=== PATIENT | female | born 1945 | race Caucasian/White ===

== ENCOUNTER → 2017-07-27 | Outpatient (CLI) | payer OTHER ==
[~2017-07-27] MED LIST: ASPI81TA23 PO; LATA0.002 EACH EYE; LOPE1LIQ13 PO; METF500T PO; NEBI20 PO; PRIL20TA2 PO; TIMO0.5S30 EACH EYE
== END ==
LOC: CPRE 09:16
PROVIDERS: ATTEND Orthopaedic Surgery Sports Medicine
DX: M17.11 Unilateral primary osteoarthritis, right knee (principal)

== ENCOUNTER 2017-08-13 05:12 | Observation (INO) | payer MEDICARE, OTHER ==
[~2017-08-13] VITALS: Ht 167.6 cm; Wt 108.0 kg
[2017-08-13] MEDS ORDERED: CHLORHEXIDINE GLUCONATE 4% SOLN 120 ML BTL TOPICAL SCH (05:45)
[2017-08-13] MEDS ORDERED: VANCOMYCIN 1000 MG/NS 250 ML (for <70 kg) IV SCH ×2 (05:45)
[2017-08-13] MEDS ORDERED: DEXAMETHASONE SOD PHOS 20 MG/5 ML VIAL IV SCH (05:45)
[2017-08-13] MEDS ORDERED: ceFAZolin 2 GM PREMIX 50 ML IV SCH (05:45)
[2017-08-13] MEDS ORDERED: POVIDONE IODINE 7.5% SCRUB 118 ML BOTTLE TOPICAL SCH (05:45)
[2017-08-13] MEDS ORDERED: ACETAMINOPHEN 1000 MG/100 ML 100 ML IV ONE (05:52)
[2017-08-13] MEDS ORDERED: FAMOTIDINE 20 MG/2 ML VIAL ONE (06:28)
[2017-08-13] MEDS ORDERED: POVIDONE IODINE 5% (ANTISEPSIS KIT) 4 APPLICATIONS EACH NARE PRN (06:30)
[2017-08-13] MEDS ORDERED: METOPROLOL TARTRATE 25 MG TAB PO PRN (06:30)
[2017-08-13] MEDS ORDERED: LACTATED RINGER'S 1000 ML IV PRN (06:30)
[2017-08-13] MEDS ORDERED: SODIUM CHLORID 0.9% 500 ML IV PRN (06:30)
[2017-08-13] MEDS ORDERED: CHLORHEXIDINE GLUCONATE 2 % 1 PACK (2 CLOTHS) TOPICAL PRN (06:30)
[2017-08-13] MEDS ORDERED: INSULIN HUMAN REGULAR 1,000 UNITS/10 ML VIAL SQ PRN (06:30)
[2017-08-13] MEDS ORDERED: ASPI81CH6 CHEW (06:57)
[2017-08-13] MEDS ORDERED: HYDR-3288 PO (06:57)
[2017-08-13] MEDS ORDERED: NALOXONE HCL 0.4 MG/ML AMP IV PUSH PRN (07:00)
[2017-08-13] MEDS ORDERED: LOPERAMIDE HCL SOLN 2 MG/10 ML UDC PO PRN (07:00)
[2017-08-13] MEDS ORDERED: BISACODYL 10 MG SUPP RECTAL PRN (07:00)
[2017-08-13] MEDS ORDERED: MORPHINE SULFATE 4 MG/ML INJ IV PUSH PRN ×2 (07:00→07:45)
[2017-08-13] MEDS ORDERED: diphenhydrAMINE HCL 50 MG/ML VIAL IV PUSH PRN (07:00)
[2017-08-13] MEDS ORDERED: Post-op Orders (for Pharmacy) XX ONE (07:00)
[2017-08-13] MEDS ORDERED: ONDANSETRON HCL 4 MG/2 ML VIAL IVP PRN (07:00)
[2017-08-13] MEDS ORDERED: ZOLPIDEM TARTRATE 5 MG TAB PO PRN (07:00)
[2017-08-13] MEDS ORDERED: PANTOPRAZOLE SOD 20 MG DELAYED RELEASE TAB PO PRN (07:00)
[2017-08-13] MEDS ORDERED: APREPITANT 40 MG CAP ONE (07:04)
[2017-08-13] MEDS ORDERED: GENTAMICIN SULFATE 80 MG/2 ML VIAL ONE (07:13)
[2017-08-13] MEDS ORDERED: BUPIVACAINE LIPOSOME PF 1.3% 20 ML VIAL ONE (07:25)
[2017-08-13] MEDS ORDERED: SODIUM CHLORIDE 0.9% INJ 20 ML ONE (07:28)
[2017-08-13] MEDS ORDERED: VANCOMYCIN HCL 1000 MG VIAL ONE (07:37)
[2017-08-13] MEDS ORDERED: TRANEXAMIC PERI-ARTICULAR 3,000 MG/NS 100 ML P-ARTICULR SCH ×2 (08:30)
[2017-08-13] MEDS ORDERED: SODIUM CHLORIDE 0.9% IV SCH (08:30)
[2017-08-13] MEDS ORDERED: TRANEXAMIC ACID IV SCH (08:30)
[2017-08-13] MEDS: metFORMIN HCL 500 MG TAB PO SCH ×2 (09:00→18:25)
[2017-08-13] MEDS: NEBIVOLOL 10 MG TAB PO SCH (09:00)
[2017-08-13] MEDS: ROPIVACAINE PERI-ARTICULAR INJECTION. P-ARTICULR SCH ×10 (10:09→10:11)
[2017-08-13] MEDS ORDERED: MIDAZOLAM HCL 2 MG/2 ML VIAL ONE (10:55)
[2017-08-13] MEDS: SODIUM CHLOR 0.9% 1000 ML INJ 1,000 ML IV SCH (10:55)
[2017-08-13] MEDS ORDERED: DO NOT ADM ANY ANTICOAGULANT DRUGS PRN (11:15)
--- NOTE | 2017-08-13 11:34 | RADRPT ---
EXAM DATE/TIME: 08/13/2017 11:02 [place] COMPARISON: No previous studies available for comparison. INDICATIONS : Post op right knee arthroplasty. MEDICAL HISTORY : None. SURGICAL HISTORY : None. ENCOUNTER: Initial ACUITY: 1 day PAIN SCORE: Non-responsive. LOCATION: Right knee FINDINGS: 2 views of the knee show a total knee prosthesis in good position. No fracture or dislocation is obse rved. Soft tissue swelling is noted. Air and fluid noted within the joint. Old trauma involving the d istal femur. CONCLUSION: Total knee arthroplasty in good position. Yousif Ornelas Jr., MD on August 13, 2017 at 11:28 Board Certified Radiologist. This report was verified electronically.
[2017-08-13] MEDS ORDERED: NEOSTIGMINE 5 MG/5 ML SYRINGE IV PUSH ONE (12:00)
[2017-08-13] MEDS ORDERED: DEXAMETHASONE SOD PHOS 4 MG/ML VIAL IV ONE (12:00)
[2017-08-13] MEDS ORDERED: LIDOCAINE HCL 1% PF 5 ML SYRINGE OTHER ONE (12:00)
[2017-08-13] MEDS ORDERED: PROPOFOL 200 MG/20 ML AMP IV ONE (12:00)
[2017-08-13] MEDS ORDERED: ONDANSETRON HCL 4 MG/2 ML VIAL IV ONE (12:00)
[2017-08-13] MEDS ORDERED: LACTATED RINGER'S 1000 ML INJ 1,000 ML IV ONE (12:00)
[2017-08-13] MEDS ORDERED: ROCURONIUM INJ 50 MG/5 ML SYRINGE IV PUSH ONE (12:00)
[2017-08-13] MEDS ORDERED: GLYCOPYRROLATE 1 MG/5 ML SYRINGE IV PUSH ONE (12:00)
[2017-08-13] MEDS ORDERED: *morphine SULFATE 10 MG/ML PERIprocedure ONLY ONE (13:01)
[2017-08-13] MEDS: ceFAZolin 2 GM PREMIX 50 ML IV SCH ×2 (14:00→18:25)
--- NOTE | 2017-08-13 14:54 | HHI.DCPOC ---
Discharge Care Plan Diagnosis: (1) Primary localized osteoarthrosis, lower leg Your Health Problems Are: Difficulty with ADL Goals to Promote Your Health * To prevent worsening of your condition and complications * To maintain your health at the optimal level Directions to Meet Your Goals Take your medications as prescribed Follow your dietary instruction Follow activity as directed Keep your appointments as scheduled Take your immunizations and boosters as scheduled If your symptoms worsen call your PCP, if no PCP go to Urgent Care Center or Emergency Room Smoking is Dangerous to Your Health. Avoid second hand smoke Call the 24-hour hour crisis hotline for domestic abuse at Oscar Jade Aug 13, 2017 14:53
--- NOTE | 2017-08-13 14:54 | HHI.FF ---
Face to Face Verification Diagnosis: (1) Primary localized osteoarthrosis, lower leg Physical Therapy Gait training, Safety evaluation, Transfer training, bed to chair Knee: Total knee, Protocol: Right, Full weight bearing Right LE Weight Bearing: WB as tolerated Nursing RN: 3 days/week x 2 weeks Nursing: Telly teaching, Dressing changes Dressing Changes: Daily dressing change I have seen patient Amelia Barksdale Early on 08/13/17. My clinical findings support the need for the requested home health care services because: Limited ability to care for self High risk of falls I certify that my clinical findings support that this patient is homebound because: Post-op weakness Unsteady gait/balance Oscar Jade Aug 13, 2017 14:54
[2017-08-13 16:00] VITALS: BP 133/74; PULSE 71; RESP 15; TEMP 97.1; O2SAT 93
--- NOTE | 2017-08-13 16:04 | PD.CONS ---
HPI Service [facility] Hospitalists Consult Requested By Dr. Burnett Reason for Consult Medical management Primary Care Physician Tate Burnett M.D. Diagnoses: History of Present Illness 72 year old female admitted after having a right total knee replacement with Dr. Forrest. Hospitalist service consulted for medical management of chronic conditions. Patient has no acute complaints and states she is feeling well post-op, just tired. She denies chest pain, shortness of breath, abdominal pain, nausea, vomiting, or headache. She states she had a meniscal repair of her right knee years ago and since then her knee has continued to give her problems and cause her pain. Review of Systems Constitutional: DENIES: Fever, Chills Eyes: DENIES: Diplopia Respiratory: DENIES: Cough, Shortness of breath Cardiovascular: DENIES: Chest pain, Palpitations Gastrointestinal: DENIES: Abdominal pain, Nausea, Vomiting Musculoskeletal: DENIES: Back pain, Neck pain Neurologic: DENIES: Headache Psychiatric: DENIES: Confusion Past Family Social History Allergies: Coded Allergies: No Known Allergies (Unverified , 08/13/17) Past Medical History DM HTN HLD (cannot tolerate statins) OA GERD Past Surgical History Cholecystectomy x 2 Hysterectomy Elbow reconstruction Right meniscal tear repair Right TKR Reported Medications Aspirin Low Dose (Aspirin) 81 Mg Chew 81 Mg CHEW DAILY 30 Days [place] (Hydrocodone-Acetaminophen) 7.5-325 mg Tab 1-2 Tab PO Q6H PRN Prilosec (Omeprazole Magnesium) 20 Mg Tab 1 Tab PO DAILY PRN Latanoprost Opth Drops (Latanoprost) 0.005% Drops 1 Drop EACH EYE HS Timolol Opth Drops 0.5 % Soln 1 Drop EACH EYE BID Imodium A-D (Loperamide HCl) 1 Mg/7.5 Ml Liquid 1 Mg PO DAILY PRN Metformin (Metformin HCl) 500 Mg Tab 500 Mg PO BIDPC Aspirin EC (Aspirin) 81 Mg Tabdr 81 Mg PO DAILY Bystolic (Nebivolol) 20 Mg Tab 20 Mg PO DAILY Family History Father from COPD Mother decreased from lung cancer Social History Lives alone Works as a residential interior designer Never smoked Rare EtOH use Physical Exam Vital Signs Vital Signs Date Time Temp Pulse Resp B/P (MAP) Pulse Ox O2 Delivery O2 Flow Rate FiO2 08/13/17 15:27 Nasal Cannula 2.00 2/19/18 11:30 54 18 132/62 (85) 92 Nasal Cannula 2 08/13/17 11:15 65 21 128/60 (82) 95 Nasal Cannula 2 08/13/17 11:00 60 17 149/64 (92) 95 Nasal Cannula 2 08/13/17 10:47 97.4 66 12 139/62 (87) 94 Nasal Cannula 3 08/13/17 08:13 66 18 124/66 (85) 97 08/13/17 06:38 96.0 78 20 147/97 (114) 95 Physical Exam GENERAL: Well-nourished, well-developed female laying in bed in no apparent distress. SKIN: No rashes, ecchymoses or lesions. Cool and dry. HEAD: Atraumatic. Normocephalic. No temporal or scalp tenderness. Pupils equal and round. Extraocular motions intact. No scleral icterus. No injection or drainage. Nose without bleeding, purulent drainage or septal hematoma. Throat without erythema, tonsillar hypertrophy or exudate. Uvula midline. Airway patent. NECK: Trachea midline. No JVD or lymphadenopathy. Supple, nontender, no meningeal signs. CARDIOVASCULAR: Regular rate and rhythm without murmurs, gallops, or rubs. RESPIRATORY: Clear to auscultation. Breath sounds equal bilaterally. No wheezes , rales, or rhonchi. GASTROINTESTINAL: Abdomen soft, non-tender, nondistended. No hepato-splenomegaly , or palpable masses. No guarding. MUSCULOSKELETAL: LLE with SCD in place. RLE wrapped. NEUROLOGICAL: Awake and alert. Normal speech. Assessment and Plan Assessment and Plan 72 year old female s/p R TKR. Consulted for medical management. 1. S/P R TKR - Post-op care and pain control per ortho - PT 2. DM - Resume home metformin - SSI per protocol 3. HTN - Continue home Bystolic 4. GERD - Continue home PPI 5. DVT prophylaxis - Lovenox per ortho 6. FEN Diabetic diet Code Status FULL Brissa Cespedes MD Aug 13, 2017 16:04
[2017-08-13] MEDS ORDERED: MENTHOL LOZENGE BUCCAL PRN (16:30)
[2017-08-13] MEDS: ACETAMINOPHEN/HYDROcodone 325 MG/7.5 MG TAB PO PRN (18:26)
[2017-08-13] MEDS: LATANOPROST 0.005% OPHT SOLN 2.5 ML BTL EACH EYE SCH (20:09)
[2017-08-13 21:25] VITALS: BP 111/63; PULSE 74; RESP 18; TEMP 97.1; O2SAT 95
[2017-08-14] VITALS (7 sets, daily range): BP systolic 103–125; BP diastolic 53–71; PULSE 60–78; RESP 17–18; TEMP 96.5–98.7; O2SAT 92–95
[2017-08-14] MEDS: ceFAZolin 2 GM PREMIX 50 ML IV SCH (00:48)
[2017-08-14] MEDS: SODIUM CHLOR 0.9% 1000 ML INJ 1,000 ML IV SCH ×3 (00:50→21:07)
[2017-08-14 05:28] LABS: HEMATOCRIT 34.9 % (35.0-46.0); HEMOGLOBIN 11.7 GM/DL (11.6-15.3); MEAN CORPUSCULAR HEMOGLOBIN 28.8 PG (27.0-34.0); MEAN CORPUSCULAR HGB CONC 33.4 % (32.0-36.0); MEAN PLATELET VOLUME 9.3 FL (7.0-11.0); PLATELET COUNT 235 TH/MM3 (150-450); RED BLOOD COUNT 4.06 MIL/MM3 (4.00-5.30); RED CELL DISTRIBUTION WIDTH 13.6 % (11.6-17.2); WHITE BLOOD COUNT 10.5 TH/MM3 (4.0-11.0)
[2017-08-14 05:53] LABS: BICARBONATE 25.3 MEQ/L (21.0-32.0); CALCIUM 8.5 MG/DL (8.5-10.1); CREATININE 0.79 MG/DL (0.50-1.00)
[2017-08-14] MEDS: ACETAMINOPHEN/HYDROcodone 325 MG/7.5 MG TAB PO PRN ×4 (06:18→23:04)
--- NOTE | 2017-08-14 08:36 | PD.ORT.PN ---
Subjective Post Op Day #: 1 Subjective Remarks pain controlled. Objective Vitals Vital Signs Date Time Temp Pulse Resp B/P (MAP) Pulse Ox O2 Delivery O2 Flow Rate FiO2 08/14/17 08:00 97.5 60 17 125/59 (81) 94 08/14/17 05:16 Room Air 08/14/17 03:40 97.0 70 18 115/53 (73) 95 08/14/17 00:35 98.0 68 18 121/60 (80) 92 08/13/17 21:25 97.1 74 18 111/63 (79) 95 08/13/17 19:30 18 08/13/17 16:00 97.1 71 15 133/74 (93) 93 08/13/17 15:27 Nasal Cannula 2.00 08/13/17 15:00 97.5 77 22 139/65 (89) 100 Nasal Cannula 2 08/13/17 14:00 61 18 139/60 (86) 100 Nasal Cannula 2 08/13/17 13:00 62 20 117/79 (92) 99 Nasal Cannula 2 08/13/17 12:30 60 18 137/60 (85) 98 Nasal Cannula 2 08/13/17 12:00 57 19 126/57 (80) 97 Nasal Cannula 2 08/13/17 11:30 54 18 132/62 (85) 92 Nasal Cannula 2 08/13/17 11:15 65 21 128/60 (82) 95 Nasal Cannula 2 08/13/17 11:00 60 17 149/64 (92) 95 Nasal Cannula 2 08/13/17 10:47 97.4 66 12 139/62 (87) 94 Nasal Cannula 3 I/O 08/13/17 08/13/17 08/13/17 08/14/17 08/14/17 08/14/17 07:00 15:00 23:00 07:00 15:00 23:00 Intake Total 1300 ml 50 ml 1240 ml Output Total 280 ml 1000 ml Balance 1020 ml 50 ml 240 ml Intake Oral 1240 ml IV Total 1300 ml 50 ml Output Urine Total 230 ml 1000 ml Estimated Blood Loss 50 ml # Bowel Movements 0 Result Diagram: 08/14/175 08/14/17444 Objective Remarks in bed, nad dressing c/d/i neg homans nvi Assessment & Plan Ortho Post Op Day #: 1 Problem List: Assessment and Plan s/p R TKA wbat daily dressing changes carmen, d/c on asa81 d/c planning to snf rx in chart f/up dr. lcay 2 weeks Oscar Jade Aug 14, 2017 08:36
[2017-08-14] MEDS ORDERED: WALKER WHEELS/F1 MIS (08:38)
[2017-08-14] MEDS ORDERED: COMMODE 3-IN-11 MIS (08:38)
[2017-08-14] MEDS ORDERED: CPMMACHINE (08:38)
[2017-08-14] MEDS: metFORMIN HCL 500 MG TAB PO SCH ×2 (10:01→17:41)
[2017-08-14] MEDS: ENOXAPARIN SODIUM 40 MG/0.4 ML SYRINGE SQ SCH (10:08)
[2017-08-14] MEDS: NEBIVOLOL 10 MG TAB PO SCH (10:09)
--- NOTE | 2017-08-14 10:22 | MP ---
cc: DAKOTA MALONE DATE OF SURGERY 08/13/2017 PREOPERATIVE DIAGNOSIS Right knee osteoarthritis. POSTOPERATIVE DIAGNOSIS Right knee osteoarthritis. PROCEDURE Right total knee arthroplasty. SURGEON Dr. Dakota Malone. BIOTECHNOLOGIST Christiano Jade PA-C. ANESTHESIA General with an adductor canal femoral nerve block. ESTIMATED BLOOD LOSS 50 cc. TOURNIQUET TIME 25 minutes at 250 mmHg. COMPLICATIONS None. IMPLANTS USED DePuy Attune, size 7 posterior stabilized femoral component, size 6 rotating platform tibia baseplate, size 5 mm polyethylene tibial insert, size 35 patella. JUSTIFICATION This patient is a 72-year-old female with a history of severe end-stage osteoarthritis involving the right knee. She has severe disabling pain with standing, walking ambulation and weightbearing activities and even severe pain at rest. She has failed greater than three months of nonoperative conservative treatment to include medication, therapy, injections, ambulatory assisted aids, home exercise program, activity modification and weight loss attempts. X-rays of the right knee revealed severe end-stage osteoarthritis with [id number] joint space narrowing, subchondral sclerosis, subchondral cysts, osteophyte formation and subluxation with varus deformity. The patient was counseled as to the risks, benefits and alternatives to a total knee arthroplasty. The risks were discussed which include but are not limited to anesthesia, bleeding, infection, damage to nerves and blood vessels, pain, stiffness, failure of components, blood clots, pulmonary embolism and even . The patient's pain was severe. She favored the benefits over the risks. She did wish to proceed with surgery. PROCEDURE IN DETAIL A written consent was obtained. The patient was identified by name, taken to the operating room and placed supine on the operating table. General anesthesia was administered as well as two grams of IV Ancef and one gram of IV vancomycin. A well-padded tourniquet was placed on the right thigh. The right lower extremity was prepped and draped using isopropyl alcohol, Hibiclens solution and ChloraPrep solution. After a timeout was formed an Esmarch bandage was used to exsanguinate the right lower extremity and tourniquet inflated to 250 mmHg. A longitudinal incision was made over the anterior aspect of the right knee. A medial parapatellar arthrotomy was performed. The patella was everted. A patellar resection guide was used to resect 9 mm of patella. A size 35 mm guide was placed. Three drill holes were placed and the 35 mm trial fit well. Attention was turned to the femur where an intramedullary guide jen was placed. A distal femoral guide was set to remove 10 mm of distal femur 5 degrees off the anatomic valgus axis alignment. An oscillating saw was used to perform the distal femoral cut. Attention was turned to the tibia where an extramedullary tibial guide was set to remove 5 mm off the lowest portion of the medial tibial plateau. The tibial guide was pinned in place and the tibial cut was performed. A 5 mm spacer block showed full extension. Attention was turned back to the femur where the AP sizing block measured size 7. An anterior reference 3 degree external rotation guide was used to pin a size [address] The anterior, posterior and chamfer cuts were performed. A size 7 PCL box guide was pinned in place and the PCL was box cut with an oscillating saw. The medial and lateral meniscus remnants were removed as well as bone and soft tissue debris from the posterior portion of the knee. A size 6 tibial baseplate was pinned in place and the tibia was drilled and punched. Trial components were evaluated and final components cemented in place. With the current components the leg could achieve full extension to 0 degrees and flexion to 140. There was no evidence of tibial lift-off. Varus-valgus balance appeared appropriate and symmetric. The patella did have central patellar tracking after a partial lateral release was performed. With the tourniquet deflated Bovie cautery was used for hemostasis. The knee was thoroughly irrigated with sterile saline pulse lavage antibiotic-impregnated solution. The arthrotomy incision was closed with #1 Vicryl suture, the subcutaneous layer with 2-0 Vicryl suture. Skin was closed with Dermabond. Sterile dressing was applied. The patient tolerated the procedure with no intraoperative complications noted. Christiano Jade, physician facilities maintenance assistant certified, was present during the entire procedure to include patient positioning and the procedure itself. The medical necessity of the physician facilities maintenance assistant was indicated in this case due to the complexity of the procedure. He assisted with manipulation of the leg and also retraction of muscle, tendon, bone and neurovascular structures. He assisted with preparation of bone and also implantation of the prosthetic replacement. MD LAURIE Reed/JUNIOR /10:10 AM /9:57 AM
--- NOTE | 2017-08-14 18:31 | HHI.PR ---
Subjective Remarks seen this am no cp or sobn no n/v. no bm yet. Patient says she took Imodium prior to admission because she does not want have a bowel movement in the hospital. Objective Vital Signs Date Time Temp Pulse Resp B/P (MAP) Pulse Ox O2 Delivery O2 Flow Rate FiO2 08/14/17 16:00 96.9 75 17 103/71 (82) 95 08/14/17 11:57 96.5 62 17 111/56 (74) 93 08/14/17 08:00 97.5 60 17 125/59 (81) 94 08/14/17 05:16 Room Air 08/14/17 03:40 97.0 70 18 115/53 (73) 95 08/14/17 00:35 98.0 68 18 121/60 (80) 92 08/13/17 21:25 97.1 74 18 111/63 (79) 95 08/13/17 19:30 18 I/O 08/13/17 08/13/17 08/13/17 08/14/17 08/14/17 08/14/17 07:00 15:00 23:00 07:00 15:00 23:00 Intake Total 1300 ml 50 ml 1240 ml 480 ml Output Total 280 ml 1000 ml Balance 1020 ml 50 ml 240 ml 480 ml Intake Oral 1240 ml 480 ml IV Total 1300 ml 50 ml Output Urine Total 230 ml 1000 ml Estimated Blood Loss 50 ml # Voids 1 1 # Bowel Movements 0 0 Result Diagram: 08/14/175 08/14/17 0445 Objective Remarks GENERAL: NAD. AAOX3 SKIN: Warm and dry. HEAD: Normocephalic. EYES: No scleral icterus. No injection or drainage. NECK: Supple, trachea midline. No JVD. CARDIOVASCULAR: Regular rate and rhythm without murmurs, gallops, or rubs. RESPIRATORY: Breath sounds equal bilaterally. No accessory muscle use. GASTROINTESTINAL: Abdomen soft, non-tender, nondistended. MUSCULOSKELETAL: No cyanosis, or edema. BACK: Nontender without obvious deformity. No CVA tenderness. A/P Assessment and Plan 72 year old female s/p R TKR. Consulted for medical management. //S/P R TKR - Post-op care and pain control per ortho - PT //DM - cont home metformin - SSI per protocol //. HTN - Continue home Bystolic // GERD - Continue home PPI // DVT prophylaxis - Lovenox per ortho // FEN Diabetic diet Discharge Planning as per ortho. Oscar Tijerina MD Aug 14, 2017 18:31
[2017-08-14] MEDS ORDERED: DOCUSATE SODIUM 50 MG/SENNA 8.6 MG TAB PO ONE (20:00)
[2017-08-14] MEDS: DOCUSATE SODIUM 100 MG CAP PO SCH (21:06)
[2017-08-14] MEDS: MULTIVITAMINS/MINERALS THERAPEUTIC TAB PO SCH (21:06)
[2017-08-14] MEDS: LATANOPROST 0.005% OPHT SOLN 2.5 ML BTL EACH EYE SCH (21:07)
--- NOTE | 2017-08-15 07:48 | PD.ORT.PN ---
Subjective Post Op Day #: 2 Subjective Remarks pain controlled. doing well. Objective Vitals Vital Signs Date Time Temp Pulse Resp B/P (MAP) Pulse Ox O2 Delivery O2 Flow Rate FiO2 08/14/17 23:25 98.7 64 18 123/66 (85) 93 08/14/17 20:40 97.3 78 18 107/68 (81) 94 08/14/17 16:00 96.9 75 17 103/71 (82) 95 08/14/17 11:57 96.5 62 17 111/56 (74) 93 08/14/17 08:00 97.5 60 17 125/59 (81) 94 I/O 08/14/17 08/14/17 08/14/17 08/15/17 08/15/17 08/15/17 07:00 15:00 23:00 07:00 15:00 23:00 Intake Total 1240 ml 480 ml 720 ml Output Total 1000 ml Balance 240 ml 480 ml 720 ml Intake Oral 1240 ml 480 ml 720 ml Output Urine Total 1000 ml # Voids 1 1 2 # Bowel Movements 0 0 0 Result Diagram: 08/14/17 0445 08/14/17 0445 Objective Remarks in bed, nad dressing c/d/i neg homans nvi Assessment & Plan Ortho Post Op Day #: 2 Problem List: Assessment and Plan s/p R TKA wbat daily dressing changes lovenox, d/c on asa81 PT d/c planning to snf - pending authorization, likely Thurs. rx in chart f/up dr. lacy 2 weeks Oscar Jade Aug 15, 2017 07:48
[2017-08-15 08:00] VITALS: BP 129/48; PULSE 56; RESP 18; TEMP 96.5; O2SAT 93
[2017-08-15] MEDS: DOCUSATE SODIUM 100 MG CAP PO SCH (08:20)
[2017-08-15] MEDS: MULTIVITAMINS/MINERALS THERAPEUTIC TAB PO SCH (08:20)
[2017-08-15] MEDS: NEBIVOLOL 10 MG TAB PO SCH (08:20)
[2017-08-15] MEDS: metFORMIN HCL 500 MG TAB PO SCH (08:20)
[2017-08-15] MEDS: ACETAMINOPHEN/HYDROcodone 325 MG/7.5 MG TAB PO PRN ×2 (08:21→16:06)
[2017-08-15] MEDS: SODIUM CHLOR 0.9% 1000 ML INJ 1,000 ML IV SCH (08:22)
[2017-08-15 08:32] LABS: HEMATOCRIT 32.3 % (35.0-46.0); HEMOGLOBIN 10.8 GM/DL (11.6-15.3); MEAN CELL VOLUME 86.3 FL (80.0-100.0); MEAN CORPUSCULAR HGB CONC 33.6 % (32.0-36.0); MEAN PLATELET VOLUME 9.5 FL (7.0-11.0); PLATELET COUNT 228 TH/MM3 (150-450); RED BLOOD COUNT 3.74 MIL/MM3 (4.00-5.30); RED CELL DISTRIBUTION WIDTH 13.7 % (11.6-17.2); WHITE BLOOD COUNT 9.5 TH/MM3 (4.0-11.0)
[2017-08-15 08:55] LABS: BICARBONATE 29.6 MEQ/L (21.0-32.0); CALCIUM 8.8 MG/DL (8.5-10.1); CREATININE 0.8 MG/DL (0.50-1.00)
[2017-08-15] MEDS ORDERED: DOCUSATE SODIUM 50 MG/SENNA 8.6 MG TAB PO ONE (09:15)
[2017-08-15] MEDS ORDERED: MAGNESIUM HYDROXIDE SUSP 30 ML CUP PO ONE (09:15)
[2017-08-15] MEDS: ENOXAPARIN SODIUM 40 MG/0.4 ML SYRINGE SQ SCH (09:41)
[2017-08-15 11:56] VITALS: BP 121/64; PULSE 54; RESP 18; TEMP 97.6; O2SAT 97
--- NOTE | 2017-08-15 12:44 | HHI.PR ---
Subjective Remarks Patient seen today around 9 AM. She says she is feeling all right. Reports pain is controlled. Denies any chest pain or shortness of breath. Still no bm , however denies any abdominal pain. Objective Vital Signs Date Time Temp Pulse Resp B/P (MAP) Pulse Ox O2 Delivery O2 Flow Rate FiO2 08/15/17 11:56 97.6 54 18 121/64 (83) 97 08/15/17 09:00 18 08/15/17 08:57 Room Air 08/15/17 08:00 96.5 56 18 129/48 (75) 93 08/14/17 23:25 98.7 64 18 123/66 (85) 93 08/14/17 20:40 97.3 78 18 107/68 (81) 94 08/14/17 16:00 96.9 75 17 103/71 (82) 95 I/O 08/14/17 08/14/17 08/14/17 08/15/17 08/15/17 08/15/17 07:00 15:00 23:00 07:00 15:00 23:00 Intake Total 1240 ml 480 ml 720 ml Output Total 1000 ml Balance 240 ml 480 ml 720 ml Intake Oral 1240 ml 480 ml 720 ml Output Urine Total 1000 ml # Voids 1 1 2 # Bowel Movements 0 0 0 Result Diagram: 08/15/1770108/15/17 07 Objective Remarks GENERAL: NAD. AAOX3 no change on exam. SKIN: Warm and dry. HEAD: Normocephalic. EYES: No scleral icterus. No injection or drainage. NECK: Supple, trachea midline. No JVD. CARDIOVASCULAR: Regular rate and rhythm without murmurs, gallops, or rubs. RESPIRATORY: Breath sounds equal bilaterally. No accessory muscle use. GASTROINTESTINAL: Abdomen soft, non-tender, nondistended. MUSCULOSKELETAL: No cyanosis, or edema. BACK: Nontender without obvious deformity. No CVA tenderness. A/P Assessment and Plan 72 year old female s/p R TKR. Consulted for medical management. //S/P R TKR - Post-op care and pain control per ortho - PT //DM - cont home metformin - SSI per protocol //. HTN - Continue home Bystolic // GERD - Continue home PPI // DVT prophylaxis - Lovenox per ortho //Constipation. Patient took Imodium prior to admission. Also exacerbated by narcotics. Laxatives order this morning. Enema this afternoon. // FEN Diabetic diet Discharge Planning as per ortho. Oscar Tijerina MD Aug 15, 2017 12:44
[2017-08-15] MEDS ORDERED: SOD PHOSPHATE/SOD BIPHOSPHATE (ADULT) ENEMA 133ML RECTAL ONE (12:45)
--- NOTE | 2017-08-22 09:39 | MD ---
cc: Oscar Forrest MD DATE OF DISCHARGE: 08/15/2017 ADMITTING DIAGNOSIS: Severe degenerative osteoarthritis right knee. DISCHARGE DIAGNOSIS: Severe degenerative osteoarthritis right knee. HISTORY OF PRESENT ILLNESS: Ms. Ferrell is a 72-year-old female who has been a patient of Dr. Sb Forrest at the orthopedic clinic at [place]. Currently she is being treated for severe and progressive right knee pain. The patient states the pain is a severe aching sensation inhibiting her activities of daily living. She notes that she has no alleviating factors, although in the past she has tried medications, bracing, physical therapy, home exercise program and corticosteroid injections without relief of symptoms. She does have x-ray evidence of severe degenerative osteoarthritis of the right knee. While in the office the patient was counseled on her diagnosis and treatment options, risks, benefits, indications all were discussed. The patient did elect to proceed with surgical intervention to include a right total knee arthroplasty. Date of surgery 08/13/2017, right total knee arthroplasty. POSTOPERATIVE: After surgery, patient admitted to [facility] where she received appropriate medical management with pain control, DVT prophylaxis as well as physical therapy. DISCHARGE: The patient is being discharged from the hospital. The patient is cleared to go to a long-term facility. She is in stable condition. She may weight bear as tolerated. She has been instructed in appropriate wound care an management. She has been provided prescriptions for pain control as well as DVT prophylaxis medication. She has also been provided a followup appointment approximately 2 weeks from her date of surgery. The patient asked appropriate questions which have been answered. The patient has been discharged. Dictated by Oscar Jade PA-C Oscar Forrest MD JWM/rt , 08:40 AM , 11:39 PM
== END 2017-08-15 16:58 ==
LOC: HSDC 05:12 → INTOOBSV 07:13 → HSDI 07:13 → EDSTATUS 08:30 → N06A 15:29
PROVIDERS: ADMIT Orthopaedic Surgery Sports Medicine; ATTEND Orthopaedic Surgery Sports Medicine
DX: M17.11 Unilateral primary osteoarthritis, right knee (principal); K59.00 Constipation, unspecified; I10 Essential (primary) hypertension; E11.9 Type 2 diabetes mellitus without complications; E78.5 Hyperlipidemia, unspecified; K21.9 Gastro-esophageal reflux disease without esophagitis; Z79.84 Long term (current) use of oral hypoglycemic drugs; Z79.82 Long term (current) use of aspirin
CPT/HCPCS: 01400; 27447; 73560; 80048; 82948; 85027; 86850; 86900; 86901; 94150; 96365; 96372; 97110; 97116; 97150; 97162; 97167; 97535; C1776; C9290; G0378; J0131; J0690; J0735; J1100; J1580; J1650; J1885; J2250; J2270; J2405; J2710; J2795; J3010; J3370; J7030; J7050; J7120; L1830; J8501